=== PATIENT | female | born 1940 | race Caucasian/White ===

== ENCOUNTER 2024-05-18 09:42 | Inpatient (IN) | payer MEDICARE ==
[2024-05-18 13:04] VITALS: BMI 27.7
[2024-05-18] MEDS ORDERED: Lidocaine 1% PF 5 ML VIAL ONE (13:07)
[2024-05-18] MEDS ORDERED: Rocuronium Bromide 10 MG/ML (10ML VIAL) ONE (13:07)
[2024-05-18] MEDS ORDERED: PROPOFOL 20 ML ONE (13:07)
[2024-05-18] MEDS ORDERED: fentaNYL PF 100 MCG/2 ML SYRINGE ONE (13:07)
[2024-05-18] MEDS ORDERED: Dexamethasone 20 MG/5 ML VIAL ONE (13:07)
[2024-05-18] MEDS ORDERED: Ondansetron PF 4 MG/2 ML Vial ONE (13:07)
[2024-05-18] MEDS ORDERED: SUCCINYLCHOLINE/SOD CL,ISO/PF 200 MG/10 ML SYRINGE FS ONE (13:07)
[2024-05-18] MEDS ORDERED: Lactated Ringer's 1,000 ML IV SCH (13:15)
[2024-05-18 13:29] LABS: #Basophils Less than 0.03 10x3/uL (0.0-0.2); #Eosinophils Less than 0.03 10x3/uL (0.0-0.7); %Basophils 0.1 % (0.0-1.0); %Eosinophils 0.1 % (0.0-10.0); %Lymphocytes 5.8 % (21.0-51.0); %Monocytes 7.9 % (0.0-10.0); %Neutrophils 85.7 % (42.0-75.0); Hematocrit 37.4 % (36.0-47.0); Hemoglobin 12.3 g/dL (12.0-16.0); Mean Corpuscular HGB CONC 32.9 g/dL (32.0-36.0); Mean Corpuscular Hemoglobin 31.9 pg (27.0-31.0); Mean Corpuscular Volume 96.9 fL (78.0-98.0); Mean Platelet Volume 8.9 fL (7.4-10.4); Platelet Count 266 10x3/uL (130-400); RBC Distribution Width 15.2 % (11.5-14.5); Red Blood Cell (RBC) Count 3.86 mill/uL (4.20-5.40)
[2024-05-18 13:42] LABS: INR-International Normal Ratio 1.1; PTT 26.7 sec (22.9-36.1); Prothrombin Time 13.7 sec (12.0-14.7)
[2024-05-18] MEDS ORDERED: cefOXitin 2 GM VIAL ONE (13:42)
[2024-05-18 13:52] LABS: Anion Gap 15 mmol/L (10-20); BUN (Urea Nitrogen) 11 mg/dL (9.8-20.1); Calc. Creatinine Clearance 59 mL/min (70-130); Calcium 8.7 mg/dL (7.8-10.44); Carbon Dioxide 24 mmol/L (23-31); Chloride 93 mmol/L (98-107); Estimated GFR 68; Glucose 143 mg/dL (83-110); Magnesium 1.7 mg/dL (1.6-2.6); Phosphorus 3.3 mg/dL (2.3-4.7); Sodium 128 mmol/L (136-145)
[2024-05-18] MEDS ORDERED: PHENYLEPHRINE-NS 100 MCG/ML 10 ML SYRINGE ONE (14:22)
[2024-05-18] MEDS ORDERED: fentaNYL 50 mcg/mL 1 mL Vial ONE (15:03)
[2024-05-18] MEDS ORDERED: Ketamine In 0.9 % NaCl 50 MG/5 ML SYRINGE ONE (15:10)
[2024-05-18] MEDS ORDERED: SUGAMMADEX SODIUM 200 MG/2 ML VIAL ONE (15:15)
[2024-05-18] MEDS ORDERED: Morphine 2 MG/ML VIAL SLOW IVP PRN (16:15)
[2024-05-18] MEDS ORDERED: Ipratropium/Albuterol 3 ML NEB NEB PRN (16:35)
[2024-05-18] MEDS ORDERED: Sodium Chloride 0.9% 1,000 ML IV SCH (16:45)
[2024-05-18] MEDS ORDERED: Piperacillin/Tazobactam 3.375 GM in Sodium Chloride 0.9% 100 ML IVPB SCH (18:00)
[2024-05-18] MEDS: Ketorolac Tromethamine 30 MG (1 mL) VIAL IVP SCH (18:24)
[2024-05-18] MEDS: Lactated Ringer's 1,000 ML IV SCH (18:26)
[2024-05-18] MEDS: Magnesium 2 GM/50 ML(in water) 2 GM in Premix 1 BAG IVPB SCH (18:26)
[2024-05-18] MEDS: Piperacillin/Tazobactam 3.375 GM in Sodium Chloride 0.9% 100 ML IVPB SCH ×2 (18:58→19:54)
[2024-05-18] MEDS: Heparin 5,000 UNITS/ML VIAL SC SCH (19:53)
[2024-05-18] MEDS: dilTIAZem 30 MG TAB PO SCH (19:54)
[2024-05-18] MEDS: Famotidine/PF 20 mg/2ml Vial SLOW IVP SCH (19:54)
[2024-05-19 06:23] LABS: #Basophils Less than 0.03 10x3/uL (0.0-0.2); #Eosinophils Less than 0.03 10x3/uL (0.0-0.7); %Basophils 0.1 % (0.0-1.0); %Lymphocytes 4.4 % (21.0-51.0); %Monocytes 6.6 % (0.0-10.0); %Neutrophils 88.4 % (42.0-75.0); Hematocrit 28.9 % (36.0-47.0); Hemoglobin 9.5 g/dL (12.0-16.0); Mean Corpuscular HGB CONC 32.9 g/dL (32.0-36.0); Mean Corpuscular Hemoglobin 31.6 pg (27.0-31.0); Mean Platelet Volume 9.2 fL (7.4-10.4); Platelet Count 235 10x3/uL (130-400); RBC Distribution Width 15.5 % (11.5-14.5); Red Blood Cell (RBC) Count 3.01 mill/uL (4.20-5.40)
[2024-05-19 06:35] LABS: Anion Gap 12 mmol/L (10-20); BUN (Urea Nitrogen) 15 mg/dL (9.8-20.1); Calc. Creatinine Clearance 63 mL/min (70-130); Carbon Dioxide 25 mmol/L (23-31); Chloride 97 mmol/L (98-107); Estimated GFR 73; Glucose 136 mg/dL (83-110); Sodium 130 mmol/L (136-145)
[2024-05-19 06:57] LABS: Calcium 8.4 mg/dL (7.8-10.44); Magnesium 2.2 mg/dL (1.6-2.6)
[2024-05-19] MEDS: BuPROPion XL 150 MG ER.TAB PO SCH (08:39)
[2024-05-19] MEDS: Mycophenolate 250 MG CAP PO SCH (08:39)
[2024-05-19] MEDS: Cholecalciferol 1,000 UNITS (25 MCG) TAB PO SCH (08:39)
[2024-05-19] MEDS: predniSONE 5 MG TAB PO SCH (08:39)
[2024-05-19] MEDS: dilTIAZem 30 MG TAB PO SCH (08:39)
[2024-05-19] MEDS: Fish Oil 1,000 MG CAP PO SCH (08:39)
[2024-05-19] MEDS: Lactated Ringer's 1,000 ML IV SCH (08:46)
[2024-05-19] MEDS: Temazepam 15 MG CAP PO PRN (21:19)
[2024-05-19] MEDS: Melatonin 3 MG TAB PO PRN (21:19)
[2024-05-20 07:41] LABS: #Basophils Less than 0.03 10x3/uL (0.0-0.2); %Basophils 0.1 % (0.0-1.0); %Eosinophils 0.3 % (0.0-10.0); %Lymphocytes 18.4 % (21.0-51.0); %Monocytes 6.4 % (0.0-10.0); %Neutrophils 74.3 % (42.0-75.0); Hematocrit 24.4 % (36.0-47.0); Hemoglobin 7.8 g/dL (12.0-16.0); Mean Platelet Volume 9.5 fL (7.4-10.4); Platelet Count 197 10x3/uL (130-400); RBC Distribution Width 15.5 % (11.5-14.5); Red Blood Cell (RBC) Count 2.44 mill/uL (4.20-5.40)
[2024-05-20 08:32] LABS: Potassium 3.9 mmol/L (3.5-5.1); Sodium 131 mmol/L (136-145)
[2024-05-20 08:33] LABS: Calcium 7.8 mg/dL (7.8-10.44); Chloride 102 mmol/L (98-107)
[2024-05-20 08:34] LABS: Glucose 69 mg/dL (83-110)
[2024-05-20 08:35] LABS: Anion Gap 17 mmol/L (10-20); Carbon Dioxide 16 mmol/L (23-31)
[2024-05-20 08:37] LABS: Calc. Creatinine Clearance 67 mL/min (70-130); Estimated GFR 79
[2024-05-20 08:38] LABS: BUN (Urea Nitrogen) 17 mg/dL (9.8-20.1)
[2024-05-20] MEDS ORDERED: SYSTANE 0.3-0.4% EYE DROPS (30 ML) EA EYE PRN (09:19)
[2024-05-20] MEDS: Ferrous Sulfate 325 MG TAB PO SCH (17:01)
[2024-05-20] MEDS: Albuterol 200 PUFF (6.7GM INHALER) INH SCH (18:01)
[2024-05-20] MEDS: Ascorbic Acid 500 mg Chewable Tablet PO SCH (21:55)
[2024-05-20] MEDS: Ondansetron PF 4 MG/2 ML Vial IVP PRN (23:08)
[2024-05-21 06:04] LABS: #Basophils Less than 0.03 10x3/uL (0.0-0.2); %Basophils 0.1 % (0.0-1.0); %Eosinophils 1.2 % (0.0-10.0); %Lymphocytes 25.7 % (21.0-51.0); %Monocytes 5.8 % (0.0-10.0); %Neutrophils 66.9 % (42.0-75.0); Hematocrit 25.6 % (36.0-47.0); Hemoglobin 8.1 g/dL (12.0-16.0); Mean Corpuscular HGB CONC 31.6 g/dL (32.0-36.0); Mean Corpuscular Hemoglobin 31.6 pg (27.0-31.0); Mean Platelet Volume 8.9 fL (7.4-10.4); Platelet Count 213 10x3/uL (130-400); RBC Distribution Width 15.2 % (11.5-14.5); Red Blood Cell (RBC) Count 2.56 mill/uL (4.20-5.40)
[2024-05-21] MEDS: Polyethylene Glycol 3350 17 GM Packet PO SCH (09:24)
[2024-05-21] MEDS: Docusate 100 MG CAP PO SCH (09:24)
[2024-05-22 12:28] VITALS: BP 123/72; TEMP 98.5
[2024-05-22] MEDS: Acetaminophen/Codeine 30-300mg Tablet PO PRN (14:31)
== END 2024-05-22 15:37 | disposition home or self-care (01) | DRG 330 ==
LOC: SURG A 11:11
PROVIDERS: ADMIT Surgery; ATTEND Surgery
PROC: 0DNU4ZZ Release Omentum, Percutaneous Endoscopic Approach (ICD-10-PCS; principal; 2024-05-18)
PROC: 0DB84ZZ Excision of Small Intestine, Percutaneous Endoscopic Approach (ICD-10-PCS; 2024-05-18)
DX: K56.50 Intestinal adhesions [bands], unspecified as to partial versus complete obstruction (principal); D62 Acute posthemorrhagic anemia; E87.1 Hypo-osmolality and hyponatremia; K46.0 Unspecified abdominal hernia with obstruction, without gangrene; E87.20 Acidosis, unspecified; M06.9 Rheumatoid arthritis, unspecified; M05.10 Rheumatoid lung disease with rheumatoid arthritis of unspecified site; Z96.652 Presence of left artificial knee joint; Z79.899 Other long term (current) drug therapy; Z90.710 Acquired absence of both cervix and uterus; Z90.49 Acquired absence of other specified parts of digestive tract; Z98.890 Other specified postprocedural states
CPT/HCPCS: 36415; 80048; 83735; 84100; 85025; 85610; 85730; 86850; 86900; 86901; 88307; J0694; J1100; J1644; J1885; J2405; J2543; J2704; J3010; J3475; J3490; J7120; J7512; J7517

== ENCOUNTER 2024-05-28 13:52 | Inpatient (IN) | payer MEDICARE ==
[2024-05-28] MEDS ORDERED: Potassium Chloride 20 MEQ TAB ONE (14:45)
[2024-05-28 14:52] LABS: Actual Bicarbonate (HCO3v) 27.8 mEq/L (22-28); Analyzer IN Cardio ER; Base Excess 3.2 mEq/L (-2.0 to +3.0); Calcium, Ionized (venous) 1.05 mmol/L (1.16-1.32); Chloride (VBG) 92 mmol/L (98-106); Hematocrit-VBG 31 % (36.0-47.0); Hemoglobin (Hb) 10.5 g/dL (11.7-16.1); Potassium (VBG) 3.02 mmol/L (3.70-5.30); Sodium 130 mmol/L (133-146); pH (venous) 7.437 (7.32-7.43)
[2024-05-28] MEDS ORDERED: Acetaminophen 325 MG TAB PO PRN (16:29)
[2024-05-28] MEDS ORDERED: Morphine 2 MG/ML VIAL SLOW IVP PRN (16:49)
[2024-05-28 17:00] LABS: Troponin I 0.043 ng/mL (< 0.028)
[2024-05-28] MEDS ORDERED: Electrolyte Replacement Protocol 1 EACH FS SCH (17:00)
[2024-05-28 17:01] LABS: Anion Gap 19 mmol/L (10-20); BUN (Urea Nitrogen) 7 mg/dL (9.8-20.1); Calc. Creatinine Clearance 0 mL/min (70-130); Calcium 8.7 mg/dL (7.8-10.44); Carbon Dioxide 24 mmol/L (23-31); Chloride 91 mmol/L (98-107); Estimated GFR 77; Glucose 119 mg/dL (83-110); Magnesium 1.7 mg/dL (1.6-2.6); Potassium 2.9 mmol/L (3.5-5.1); Sodium 131 mmol/L (136-145)
[2024-05-28] MEDS: Ipratropium/Albuterol 3 ML NEB NEB SCH (18:27)
[2024-05-28] MEDS: Famotidine 20 MG TAB PO SCH (18:40)
[2024-05-28] MEDS: Magnesium 2 GM/50 ML(in water) 2 GM in Premix 1 BAG IVPB SCH (18:42)
[2024-05-28] MEDS: predniSONE 20 MG TAB PO SCH (18:42)
[2024-05-28] MEDS: Potassium Chloride 20 MEQ TAB PO SCH (18:45)
[2024-05-28 19:35] LABS: Lactic Acid 1.34 mmol/L (0.5-2.2)
[2024-05-28 19:43] LABS: Troponin I 0.144 ng/mL (< 0.028)
[2024-05-28] MEDS: Potassium Chloride 20 MEQ in Lactated Ringer's 1,000 ML IV SCH (19:43)
[2024-05-28] MEDS: Potassium Bicarbonate/Cit Ac 20 MEQ TAB PO SCH (19:45)
[2024-05-28] MEDS: Acetaminophen/Codeine 30-300mg Tablet PO PRN (19:45)
[2024-05-28] MEDS: Simethicone Chewable 80 MG TAB PO PRN (19:47)
[2024-05-28] MEDS: ALPRAZolam 0.5 MG TAB PO PRN (19:48)
[2024-05-28] MEDS: Metoclopramide HCl 10 MG (2 mL) VIAL IVP PRN (19:52)
[2024-05-28] MEDS: Docusate 100 MG CAP PO SCH (20:11)
[2024-05-28] MEDS: Mycophenolate 250 MG CAP PO SCH (20:12)
[2024-05-28 21:06] VITALS: BMI 25.7
[2024-05-28 22:27] LABS: Troponin I 0.197 ng/mL (< 0.028)
[2024-05-29] MEDS: Temazepam 15 MG CAP PO PRN (00:36)
[2024-05-29 02:50] LABS: #Basophils Less than 0.03 10x3/uL (0.0-0.2); #Eosinophils Less than 0.03 10x3/uL (0.0-0.7); %Basophils 0.1 % (0.0-1.0); %Lymphocytes 13.3 % (21.0-51.0); %Monocytes 5.9 % (0.0-10.0); %Neutrophils 80.1 % (42.0-75.0); Hematocrit 26.4 % (36.0-47.0); Hemoglobin 8.7 g/dL (12.0-16.0); Mean Corpuscular Hemoglobin 31.3 pg (27.0-31.0); Mean Platelet Volume 8.8 fL (7.4-10.4); Platelet Count 353 10x3/uL (130-400); RBC Distribution Width 14.7 % (11.5-14.5); Red Blood Cell (RBC) Count 2.78 mill/uL (4.20-5.40)
[2024-05-29 06:41] LABS: Anion Gap 13 mmol/L (10-20); BUN (Urea Nitrogen) 7 mg/dL (9.8-20.1); Calc. Creatinine Clearance 69 mL/min (70-130); Carbon Dioxide 25 mmol/L (23-31); Chloride 94 mmol/L (98-107); Estimated GFR 84; Glucose 116 mg/dL (83-110); Potassium 4.4 mmol/L (3.5-5.1); Sodium 128 mmol/L (136-145)
[2024-05-29] MEDS: Polyethylene Glycol 3350 17 GM Packet PO SCH (08:47)
[2024-05-29] MEDS: Famotidine 20 MG TAB PO SCH (08:48)
[2024-05-29] MEDS: Pantoprazole DR 40 MG TAB PO SCH (08:48)
[2024-05-29] MEDS: predniSONE 20 MG TAB PO SCH (08:48)
[2024-05-29] MEDS: Potassium Chloride 10 MEQ TAB PO SCH (08:48)
[2024-05-29] MEDS: Magnesium 2 GM/50 ML(in water) 2 GM in Premix 1 BAG IVPB SCH (08:49)
[2024-05-29] MEDS: Bupropion 150 MG SR.TAB PO SCH (08:50)
[2024-05-29] MEDS ORDERED: Ipratropium/Albuterol 3 ML NEB NEB PRN (14:59)
[2024-05-29] MEDS: FLU (Fluad Triv) TS24-25 (65UP)/MF59C/PF 45 MCG/0.5 ML Syringe IM ONE (16:49)
[2024-05-29] MEDS: ADALIMUMAB 40 MG/0.4 ML SC SCH (16:49)
[2024-05-29] MEDS: ALPRAZolam 0.5 MG TAB PO PRN (20:46)
[2024-05-29] MEDS: Docusate 100 MG CAP PO SCH (20:46)
[2024-05-29] MEDS: Mycophenolate 250 MG CAP PO SCH (20:46)
[2024-05-30 03:32] LABS: #Basophils 0.03 10x3/uL (0.0-0.2); %Basophils 0.3 % (0.0-1.0); %Eosinophils 1.1 % (0.0-10.0); %Lymphocytes 32.6 % (21.0-51.0); %Monocytes 8.6 % (0.0-10.0); Hematocrit 25.8 % (36.0-47.0); Hemoglobin 8.1 g/dL (12.0-16.0); Mean Corpuscular HGB CONC 31.4 g/dL (32.0-36.0); Mean Corpuscular Volume 98.9 fL (78.0-98.0); Mean Platelet Volume 8.8 fL (7.4-10.4); Platelet Count 333 10x3/uL (130-400); RBC Distribution Width 15.3 % (11.5-14.5); Red Blood Cell (RBC) Count 2.61 mill/uL (4.20-5.40)
[2024-05-30 04:59] LABS: Anion Gap 13 mmol/L (10-20); BUN (Urea Nitrogen) 5 mg/dL (9.8-20.1); Calc. Creatinine Clearance 75 mL/min (70-130); Calcium 7.9 mg/dL (7.8-10.44); Carbon Dioxide 22 mmol/L (23-31); Chloride 100 mmol/L (98-107); Estimated GFR 86; Glucose 88 mg/dL (83-110); Potassium 4.3 mmol/L (3.5-5.1); Sodium 131 mmol/L (136-145)
[2024-05-30] MEDS: Potassium Chloride 10 MEQ TAB PO SCH (08:45)
[2024-05-30] MEDS: Fish Oil 1,000 MG CAP PO SCH (08:46)
[2024-05-30] MEDS: predniSONE 5 MG TAB PO SCH (08:46)
[2024-05-30] MEDS: Polyethylene Glycol 3350 17 GM Packet PO SCH (08:46)
[2024-05-30] MEDS: Multivitamin W/ Minerals 1 TAB PO SCH (08:46)
[2024-05-30] MEDS: Cholecalciferol 1,000 UNITS (25 MCG) TAB PO SCH (08:46)
[2024-05-30] MEDS: Pantoprazole DR 40 MG TAB PO SCH (08:52)
[2024-05-30] MEDS: BuPROPion XL 150 MG ER.TAB PO SCH (08:52)
[2024-05-30] MEDS ORDERED: Gentamicin 80 MG/2 ML VIAL ONE (11:45)
[2024-05-30] MEDS ORDERED: CEFAZOLIN 2 GM VIAL ONE (11:45)
[2024-05-30] MEDS: Sodium Chloride 0.9% 1,000 ML IV SCH (12:00)
[2024-05-30] MEDS ORDERED: fentaNYL 50 mcg/mL 1 mL Vial ONE ×4 (13:04→14:26)
[2024-05-30] MEDS ORDERED: Midazolam HCl 2 mg/2 ml Vial ONE ×2 (13:04→13:36)
[2024-05-30] MEDS: Acetaminophen/Codeine 30-300mg Tablet PO PRN (17:32)
[2024-05-30] MEDS: Cephalexin 250 MG CAP PO SCH (21:27)
[2024-05-31 03:59] LABS: #Basophils 0.03 10x3/uL (0.0-0.2); %Basophils 0.3 % (0.0-1.0); %Lymphocytes 30.4 % (21.0-51.0); %Monocytes 6.4 % (0.0-10.0); %Neutrophils 59.4 % (42.0-75.0); Hematocrit 29.2 % (36.0-47.0); Mean Corpuscular HGB CONC 30.8 g/dL (32.0-36.0); Mean Corpuscular Volume 100.7 fL (78.0-98.0); Mean Platelet Volume 8.6 fL (7.4-10.4); Platelet Count 295 10x3/uL (130-400); RBC Distribution Width 15.3 % (11.5-14.5)
[2024-05-31 04:27] LABS: Anion Gap 15 mmol/L (10-20); BUN (Urea Nitrogen) 6 mg/dL (9.8-20.1); Calc. Creatinine Clearance 75 mL/min (70-130); Calcium 7.8 mg/dL (7.8-10.44); Carbon Dioxide 18 mmol/L (23-31); Chloride 98 mmol/L (98-107); Estimated GFR 86; Glucose 91 mg/dL (83-110); Potassium 4.2 mmol/L (3.5-5.1); Sodium 127 mmol/L (136-145)
[2024-05-31] MEDS: dilTIAZem CD 120 MG CAP PO SCH (09:05)
[2024-05-31] MEDS: Sodium Chloride 1 GM TAB PO SCH (16:02)
[2024-06-01 03:34] LABS: #Basophils Less than 0.03 10x3/uL (0.0-0.2); %Basophils 0.2 % (0.0-1.0); %Eosinophils 1.4 % (0.0-10.0); Hematocrit 27.5 % (36.0-47.0); Hemoglobin 8.9 g/dL (12.0-16.0); Mean Corpuscular HGB CONC 32.4 g/dL (32.0-36.0); Mean Corpuscular Hemoglobin 31.3 pg (27.0-31.0); Mean Corpuscular Volume 96.8 fL (78.0-98.0); Mean Platelet Volume 8.6 fL (7.4-10.4); Platelet Count 265 10x3/uL (130-400); Red Blood Cell (RBC) Count 2.84 mill/uL (4.20-5.40)
[2024-06-01 03:47] LABS: Anion Gap 14 mmol/L (10-20); BUN (Urea Nitrogen) 7 mg/dL (9.8-20.1); Calc. Creatinine Clearance 75 mL/min (70-130); Calcium 8.3 mg/dL (7.8-10.44); Carbon Dioxide 22 mmol/L (23-31); Chloride 98 mmol/L (98-107); Estimated GFR 86; Glucose 91 mg/dL (83-110); Potassium 4.1 mmol/L (3.5-5.1); Sodium 130 mmol/L (136-145)
[2024-06-01] MEDS: Apixaban 2.5 MG TAB PO SCH (21:55)
[2024-06-02 04:40] LABS: #Basophils Less than 0.03 10x3/uL (0.0-0.2); %Basophils 0.2 % (0.0-1.0); %Eosinophils 0.9 % (0.0-10.0); %Lymphocytes 33.5 % (21.0-51.0); %Monocytes 9.7 % (0.0-10.0); %Neutrophils 55.4 % (42.0-75.0); Hematocrit 24.7 % (36.0-47.0); Mean Corpuscular HGB CONC 32.4 g/dL (32.0-36.0); Mean Corpuscular Volume 95.7 fL (78.0-98.0); Mean Platelet Volume 8.9 fL (7.4-10.4); Platelet Count 268 10x3/uL (130-400); RBC Distribution Width 14.9 % (11.5-14.5); Red Blood Cell (RBC) Count 2.58 mill/uL (4.20-5.40)
[2024-06-02 05:18] LABS: Anion Gap 13 mmol/L (10-20); BUN (Urea Nitrogen) 9 mg/dL (9.8-20.1); Calc. Creatinine Clearance 0 mL/min (70-130); Calcium 8.3 mg/dL (7.8-10.44); Carbon Dioxide 24 mmol/L (23-31); Chloride 98 mmol/L (98-107); Estimated GFR 84; Glucose 96 mg/dL (83-110); Potassium 3.6 mmol/L (3.5-5.1); Sodium 131 mmol/L (136-145)
[2024-06-02] MEDS: Digoxin 0.5 MG/2 ML AMP SLOW IVP SCH ×2 (15:42→18:26)
[2024-06-02] MEDS: Digoxin 0.125 MG TAB PO SCH (21:32)
[2024-06-03 04:35] LABS: #Basophils Less than 0.03 10x3/uL (0.0-0.2); %Basophils 0.2 % (0.0-1.0); %Eosinophils 0.9 % (0.0-10.0); %Lymphocytes 31.6 % (21.0-51.0); %Monocytes 8.6 % (0.0-10.0); %Neutrophils 58.2 % (42.0-75.0); Hematocrit 25.3 % (36.0-47.0); Hemoglobin 8.2 g/dL (12.0-16.0); Mean Corpuscular HGB CONC 32.4 g/dL (32.0-36.0); Mean Corpuscular Hemoglobin 31.3 pg (27.0-31.0); Mean Corpuscular Volume 96.6 fL (78.0-98.0); Mean Platelet Volume 8.9 fL (7.4-10.4); Platelet Count 252 10x3/uL (130-400); Red Blood Cell (RBC) Count 2.62 mill/uL (4.20-5.40)
[2024-06-03 05:04] LABS: Anion Gap 13 mmol/L (10-20); BUN (Urea Nitrogen) 15 mg/dL (9.8-20.1); Calc. Creatinine Clearance 73 mL/min (70-130); Calcium 8.7 mg/dL (7.8-10.44); Carbon Dioxide 25 mmol/L (23-31); Chloride 96 mmol/L (98-107); Estimated GFR 85; Glucose 106 mg/dL (83-110); Magnesium 1.7 mg/dL (1.6-2.6); Potassium 3.7 mmol/L (3.5-5.1); Sodium 130 mmol/L (136-145)
[2024-06-03] MEDS: Digoxin 0.125 MG TAB PO SCH (09:47)
[2024-06-03] MEDS: Magnesium Oxide 400 MG TAB PO SCH (09:53)
[2024-06-03] MEDS: Magnesium 2 GM/50 ML(in water) 2 GM in Premix 1 BAG IVPB SCH (10:10)
[2024-06-03] MEDS: Sodium Chloride 0.9% 500 ML IV SCH (13:19)
[2024-06-03] MEDS: Albuterol 200 PUFF (6.7GM INHALER) INH SCH (19:20)
[2024-06-03] MEDS ORDERED: dilTIAZem CD 120 MG CAP PO SCH (21:00)
[2024-06-04 02:51] LABS: #Basophils Less than 0.03 10x3/uL (0.0-0.2); %Basophils 0.1 % (0.0-1.0); %Eosinophils 0.9 % (0.0-10.0); %Lymphocytes 27.3 % (21.0-51.0); %Monocytes 8.2 % (0.0-10.0); %Neutrophils 63.1 % (42.0-75.0); Hematocrit 26.6 % (36.0-47.0); Hemoglobin 8.5 g/dL (12.0-16.0); Mean Corpuscular Hemoglobin 31.1 pg (27.0-31.0); Mean Corpuscular Volume 97.4 fL (78.0-98.0); Mean Platelet Volume 8.7 fL (7.4-10.4); Platelet Count 232 10x3/uL (130-400); RBC Distribution Width 15.1 % (11.5-14.5); Red Blood Cell (RBC) Count 2.73 mill/uL (4.20-5.40)
[2024-06-04 03:11] LABS: Anion Gap 13 mmol/L (10-20); BUN (Urea Nitrogen) 15 mg/dL (9.8-20.1); Calc. Creatinine Clearance 86 mL/min (70-130); Calcium 8.6 mg/dL (7.8-10.44); Carbon Dioxide 25 mmol/L (23-31); Chloride 98 mmol/L (98-107); Estimated GFR 88; Glucose 121 mg/dL (83-110); Sodium 132 mmol/L (136-145)
[2024-06-04] MEDS: Magnesium 2 GM/50 ML(in water) 2 GM in Premix 1 BAG IVPB SCH (11:23)
[2024-06-04] MEDS: Fludrocortisone Acetate 0.1 MG TAB PO SCH (11:25)
[2024-06-04] MEDS: buPROPion 75 MG TAB PO SCH (11:28)
[2024-06-04] MEDS: Apixaban 5 MG TAB PO SCH (21:00)
[2024-06-05 04:06] LABS: #Basophils Less than 0.03 10x3/uL (0.0-0.2); %Basophils 0.1 % (0.0-1.0); %Eosinophils 1.5 % (0.0-10.0); %Lymphocytes 33.1 % (21.0-51.0); %Monocytes 8.8 % (0.0-10.0); %Neutrophils 55.9 % (42.0-75.0); Hematocrit 27.3 % (36.0-47.0); Hemoglobin 8.6 g/dL (12.0-16.0); Mean Corpuscular HGB CONC 31.5 g/dL (32.0-36.0); Mean Corpuscular Hemoglobin 30.5 pg (27.0-31.0); Mean Corpuscular Volume 96.8 fL (78.0-98.0); Mean Platelet Volume 9.1 fL (7.4-10.4); Platelet Count 257 10x3/uL (130-400); RBC Distribution Width 14.8 % (11.5-14.5); Red Blood Cell (RBC) Count 2.82 mill/uL (4.20-5.40)
[2024-06-05 04:35] LABS: Anion Gap 14 mmol/L (10-20); BUN (Urea Nitrogen) 13 mg/dL (9.8-20.1); Calc. Creatinine Clearance 81 mL/min (70-130); Calcium 8.4 mg/dL (7.8-10.44); Carbon Dioxide 26 mmol/L (23-31); Chloride 94 mmol/L (98-107); Estimated GFR 87; Glucose 90 mg/dL (83-110); Potassium 3.4 mmol/L (3.5-5.1); Sodium 131 mmol/L (136-145)
[2024-06-05] MEDS: Potassium Chloride 20 MEQ TAB PO SCH (08:25)
[2024-06-05] MEDS: Magnesium 2 GM/50 ML(in water) 2 GM in Premix 1 BAG IVPB SCH (08:28)
[2024-06-05] MEDS: Loperamide HCl 2 MG CAP PO PRN (21:36)
[2024-06-06] MEDS: Acetaminophen 325 MG TAB PO PRN (03:23)
[2024-06-06 03:40] LABS: #Basophils 0.03 10x3/uL (0.0-0.2); %Basophils 0.3 % (0.0-1.0); %Eosinophils 1.3 % (0.0-10.0); %Lymphocytes 35.1 % (21.0-51.0); %Neutrophils 55.7 % (42.0-75.0); Hematocrit 28.6 % (36.0-47.0); Hemoglobin 9.2 g/dL (12.0-16.0); Mean Corpuscular HGB CONC 32.2 g/dL (32.0-36.0); Mean Corpuscular Volume 96.3 fL (78.0-98.0); Mean Platelet Volume 8.9 fL (7.4-10.4); Platelet Count 268 10x3/uL (130-400); RBC Distribution Width 15.1 % (11.5-14.5); Red Blood Cell (RBC) Count 2.97 mill/uL (4.20-5.40)
[2024-06-06 04:16] LABS: Anion Gap 14 mmol/L (10-20); BUN (Urea Nitrogen) 11 mg/dL (9.8-20.1); Calc. Creatinine Clearance 73 mL/min (70-130); Calcium 8.3 mg/dL (7.8-10.44); Carbon Dioxide 25 mmol/L (23-31); Chloride 95 mmol/L (98-107); Estimated GFR 85; Glucose 92 mg/dL (83-110); Potassium 3.3 mmol/L (3.5-5.1); Sodium 131 mmol/L (136-145)
[2024-06-06] MEDS: Potassium Chloride 20 MEQ TAB PO SCH ×2 (09:37→12:06)
[2024-06-06] MEDS: Magnesium 2 GM/50 ML(in water) 2 GM in Premix 1 BAG IVPB SCH (09:42)
[2024-06-06] MEDS: Midodrine HCl 5 MG TAB PO SCH ×2 (12:05→16:58)
[2024-06-06 17:13] VITALS: BMI 26.6
[2024-06-07 04:11] LABS: #Basophils 0.04 10x3/uL (0.0-0.2); %Basophils 0.3 % (0.0-1.0); %Eosinophils 1.4 % (0.0-10.0); %Lymphocytes 32.5 % (21.0-51.0); %Monocytes 8.3 % (0.0-10.0); Hematocrit 28.1 % (36.0-47.0); Hemoglobin 8.9 g/dL (12.0-16.0); Mean Corpuscular HGB CONC 31.7 g/dL (32.0-36.0); Mean Corpuscular Hemoglobin 30.5 pg (27.0-31.0); Mean Corpuscular Volume 96.2 fL (78.0-98.0); Mean Platelet Volume 9.1 fL (7.4-10.4); Platelet Count 289 10x3/uL (130-400); RBC Distribution Width 15.5 % (11.5-14.5); Red Blood Cell (RBC) Count 2.92 mill/uL (4.20-5.40)
[2024-06-07 04:35] LABS: ALT (SGPT) 32 U/L (8-55); AST (SGOT) 26 U/L (5-34); Albumin 2.7 g/dL (3.4-4.8); Alkaline Phosphatase 77 U/L (40-110); Anion Gap 12 mmol/L (10-20); BUN (Urea Nitrogen) 13 mg/dL (9.8-20.1); Bilirubin, Total 0.4 mg/dL (0.2-1.2); Calc. Creatinine Clearance 73 mL/min (70-130); Calcium 8.3 mg/dL (7.8-10.44); Carbon Dioxide 23 mmol/L (23-31); Chloride 99 mmol/L (98-107); Estimated GFR 85; Globulin 2.8 g/dL (2.4-3.5); Glucose 89 mg/dL (83-110); Protein, Total 5.5 g/dL (5.8-8.1); Sodium 130 mmol/L (136-145)
[2024-06-07] MEDS: Albumin 25% 25 GM (100 mL) BOT IVPB SCH ×2 (10:04→13:00)
[2024-06-07] MEDS: Midodrine HCl 5 MG TAB PO SCH ×2 (13:00→15:44)
[2024-06-07 14:44] LABS: Bacteria/HPF 2+ HPF (None Seen); Bilirubin Negative (Negative); Blood, Urine Negative (Negative); CAUTI Indications for Culture Dysuria,urgency,freq; Clarity Clear (Clear); Glucose, Urine (Dipstick) Normal (Negative); Ketone, Urine Negative (Negative); Leukocyte 500 Leu/uL (Negative); Nitrite 1+ (Negative); Protein, Urine (Dipstick) Negative (Neg-Trace); RBC/HPF 0-3 HPF (0-3); Squamous Epithelial None Seen HPF (0-3); Urobilinogen Normal mg/dL (Less than 2); WBC/HPF Greater than 50 HPF (0-3)
[2024-06-07 14:46] LABS: Urine Culture Reflex Yes Yes
[2024-06-07] MEDS: Cholestyramine/Aspartame 4 gm Packet PO SCH ×2 (18:05→20:16)
[2024-06-07] MEDS: HYDROcodone/Acetaminophen 5/325 mg Tablet PO PRN (20:16)
[2024-06-08 07:39] LABS: Albumin 3.5 g/dL (3.4-4.8); Anion Gap 13 mmol/L (10-20); BUN (Urea Nitrogen) 10 mg/dL (9.8-20.1); BUN/Creatinine Ratio 14.93; Calc. Creatinine Clearance 73 mL/min (70-130); Calcium 8.6 mg/dL (7.8-10.44); Carbon Dioxide 22 mmol/L (23-31); Chloride 100 mmol/L (98-107); Estimated GFR 85; Glucose 93 mg/dL (83-110); Phosphorus 2.6 mg/dL (2.3-4.7); Potassium 3.4 mmol/L (3.5-5.1); Sodium 132 mmol/L (136-145)
[2024-06-08] MEDS: Potassium Chloride 20 MEQ TAB PO SCH (12:31)
[2024-06-08 17:13] VITALS: BP 122/68; TEMP 97.2
[2024-06-09] MEDS ORDERED: Potassium Chloride 20 MEQ TAB PO SCH (09:00)
== END 2024-06-08 17:31 | DRG 242 ==
LOC: ERS 13:52 → IMCU/EMU 16:44 → 2NO 06-01 13:44
PROVIDERS: ADMIT Family Medicine; ATTEND Internal Medicine
PROC: 0JH606Z Insertion of Pacemaker, Dual Chamber into Chest Subcutaneous Tissue and Fascia, Open Approach (ICD-10-PCS; principal; 2024-05-30)
PROC: 02H63JZ Insertion of Pacemaker Lead into Right Atrium, Percutaneous Approach (ICD-10-PCS; 2024-05-30)
PROC: 02HK3JZ Insertion of Pacemaker Lead into Right Ventricle, Percutaneous Approach (ICD-10-PCS; 2024-05-30)
DX: I48.92 Unspecified atrial flutter (principal); I21.A1 Myocardial infarction type 2; E22.2 Syndrome of inappropriate secretion of antidiuretic hormone; N39.0 Urinary tract infection, site not specified; E87.20 Acidosis, unspecified; K21.9 Gastro-esophageal reflux disease without esophagitis; M06.9 Rheumatoid arthritis, unspecified; F41.9 Anxiety disorder, unspecified; M81.0 Age-related osteoporosis without current pathological fracture; Z90.49 Acquired absence of other specified parts of digestive tract; Z90.710 Acquired absence of both cervix and uterus; Z79.899 Other long term (current) drug therapy; Z96.652 Presence of left artificial knee joint; E87.6 Hypokalemia; D64.9 Anemia, unspecified; Z66 Do not resuscitate; I10 Essential (primary) hypertension; E88.09 Other disorders of plasma-protein metabolism, not elsewhere classified; R53.81 Other malaise; I49.5 Sick sinus syndrome; I95.1 Orthostatic hypotension; J84.10 Pulmonary fibrosis, unspecified
CPT/HCPCS: 33208; 36415; 71045; 74019; 80048; 80053; 80069; 81001; 82040; 82805; 83605; 83735; 83930; 83935; 85025; 87077; 87086; 87186; 93005; 93010; 93306; 93798; 93880; 94640; 99152; 99153; C1769; C1785; C1898; J1160; J1580; J2250; J2765; J3010; J3475; J3480; J7030; J7120; J7512; J7517; J7620; P9047